=== PATIENT | female | born 1945 | race Two or more races ===

== ENCOUNTER → 2024-12-27 | Outpatient (CLI) | payer MEDICAID, SELFPAY ==
--- NOTE | 2024-12-27 15:00 | XR_ITS ---
Examination: CT abdomen with intravenous contrast CT pelvis with intravenous contrast 2-D coronal reconstructions 2-D sagittal reconstructions Date and time of exam:December 27, 2024, 1437 hours, comparison September 23, 2016 INDICATIONS: Left-sided abdominal pain beginning 2 months ago. CTDI: vol (mGy) 22.7 DLP: (mGycm) 762 Technique: Multiple axial sections of the abdomen and pelvis have been obtained. 64 slice high-resolution scanner used. 3 mm axial sections have been obtained, post intravenous injection 60 cc [id number] 2-D sagittal, coronal reconstructions obtained. Low dose protocols were performed. One or more of the following dose reduction techniques were used; automated exposure control, adjustment of the mA and/or KV according to patient size, use of iterative reconstruction technique. Findings: No focal liver or splenic lesions No gallstones. Spleen is not enlarged. No pancreatic or adrenal mass. Mild renal scar formation. No renal or ureteral calculi, no hydronephrosis Aorta normal size. No pericecal inflammatory change. No bowel obstruction No diverticulitis Contracted urinary bladder Atrophic uterus No pelvic mass Advanced degenerative disc disease L4-L5 IMPRESSION: Mild renal scar formation. No CT findings of bowel obstruction appendicitis or diverticulitis
== END | disposition home or self-care (01) ==
PROVIDERS: PCP Family Medicine; Referring Provider Family Medicine; Visit Provider Family Medicine
DX: N28.89 Other specified disorders of kidney and ureter (principal)
CPT/HCPCS: 74177; A4649; Q9967

== ENCOUNTER 2025-02-10 07:00 | Day surgery (SDC) | payer MEDICAID, SELFPAY ==
[2025-02-10] VITALS (9 sets, daily range): BP systolic 143–186; BP diastolic 65–90; PULSE 53–72; RESP 14–18; TEMP 36.3–36.8; O2SAT 93–100; BMI 31.5
[2025-02-10] MEDS: MIDAZOLAM INJ 1 MG/ML VIAL 2 ML (ASD USE ONLY) 2 MG IVP (08:17)
[2025-02-10] MEDS: SODIUM CHLORIDE 0.9% 500 ML 500 ML 125 ML IV (08:17)
[2025-02-10] MEDS: fentaNYL CIT INJ 50 mCg/ML AMP 2ML (ASD USE ONLY) IVP (08:18)
== END 2025-02-10 09:35 | disposition home or self-care (01) ==
PROVIDERS: PCP Physician Assistant; Referring Provider Surgery; Visit Provider Surgery
PROC: 0DBE8ZX Excision of Large Intestine, Via Natural or Artificial Opening Endoscopic, Diagnostic (ICD-10-PCS; CPT 45380; principal; 2025-02-10 08:00)
DX: D12.3 Benign neoplasm of transverse colon (principal); D12.4 Benign neoplasm of descending colon; R19.5 Other fecal abnormalities; K64.1 Second degree hemorrhoids; K57.30 Diverticulosis of large intestine without perforation or abscess without bleeding; K80.10 Calculus of gallbladder with chronic cholecystitis without obstruction; E78.00 Pure hypercholesterolemia, unspecified; I10 Essential (primary) hypertension; Z79.899 Other long term (current) drug therapy
CPT/HCPCS: 45385; 45380; A4649; J1200; J2250; J3010; J7999